=== PATIENT | male | born 1975 | race Caucasian/White ===

== ENCOUNTER 2017-09-02 22:34 | Emergency (ER) | payer OTHER ==
[2017-09-02 23:00] VITALS: BP 127/82; BMI 21.2
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
[2017-09-02] MEDS ORDERED: TORADOL 60 MG VIAL IM ONE (23:12)
[2017-09-02] MEDS ORDERED: TORADOL 60 MG VIAL ONE (23:43)
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
== END 2017-09-03 00:40 | disposition home or self-care (01) ==
LOC: ER 22:34
DX: S02.2XXA Fracture of nasal bones, initial encounter for closed fracture (principal); S13.9XXA Sprain of joints and ligaments of unspecified parts of neck, initial encounter; S40.012A Contusion of left shoulder, initial encounter; S00.03XA Contusion of scalp, initial encounter; R51 Headache; S00.83XA Contusion of other part of head, initial encounter; Y04.0XXA Assault by unarmed brawl or fight, initial encounter; Y92.89 Other specified places as the place of occurrence of the external cause
CPT/HCPCS: 70450; 70486; 72125; 73000; 96372; 99282; 99283; J1885